=== PATIENT | male | born 1950 | race Caucasian/White ===

== ENCOUNTER 2017-01-05 08:00 | Outpatient (CLI) | payer MEDICARE, OTHER ==
[2017-01-05 13:33] LABS: CHOL/HDL RATIO 5.6 (<5.0); CHOLESTEROL 185 mg/dL; HDL CHOLESTEROL 33 mg/dL; LDL/HDL RATIO 3.3 (<3.6); TRIGLYCERIDES 215 mg/dL; VLDL CHOLESTEROL 43 mg/dL
== END 2017-01-05 08:01 | disposition home or self-care (01) ==
LOC: LAB.WCP 08:00
PROVIDERS: ATTEND Family Medicine
DX: E78.5 Hyperlipidemia, unspecified (principal)
CPT/HCPCS: 36415; 80061

== ENCOUNTER 2017-03-07 14:25 | Outpatient (CLI) | payer MEDICARE, OTHER | END 2017-03-07 14:26 | disposition home or self-care (01) | LOC: SC 14:25 | PROVIDERS: ATTEND Internal Medicine Pulmonary Disease | DX: G47.33 Obstructive sleep apnea (adult) (pediatric) (principal) | CPT/HCPCS: 99213; G0463; 99212 ==

== ENCOUNTER 2017-07-13 07:25 | Outpatient (CLI) | payer MEDICARE, OTHER ==
[2017-07-13 12:25] LABS: BASOPHILS % (AUTO) 0.6 %; EOSINOPHILS # (AUTO) 0.3 10^3/uL (0.0-0.7); EOSINOPHILS % (AUTO) 4.2 %; LYMPHOCYTES # (AUTO) 1.5 10^3/uL (1.5-3.5); LYMPHOCYTES % (AUTO) 21.4 %; MEAN CORPUSCULAR HEMOGLOBIN 28.1 pg (27.0-31.0); MEAN CORPUSCULAR VOLUME 82.5 fL (80.0-94.0); MEAN PLATELET VOLUME 8.9 fL (7.4-11.4); MONOCYTES # (AUTO) 0.7 10^3/uL (0.0-1.0); MONOCYTES % (AUTO) 10.3 %; NEUTROPHILS # (AUTO) 4.6 10^3/uL (1.5-6.6); NEUTROPHILS % (AUTO) 63.5 %; PLT - PLATELET COUNT 198 10^3/uL (130-450); RED BLOOD COUNT 6.06 10^6/uL (4.70-6.10); RED CELL DISTRIBUTION WIDTH 14.7 % (12.0-15.0); WHITE BLOOD COUNT 7.2 x10^3/uL (4.8-10.8)
[2017-07-13 12:54] LABS: PSA SCREEN (Z12.5) 1.98 ng/mL (0.000-2.000)
[2017-07-13 13:04] LABS: ALBUMIN 4.2 g/dL (3.2-5.5); ALBUMIN/GLOBULIN RATIO 1.5 (1.0-2.2); ALKALINE PHOSPHATASE 55 IU/L (42-121); ALT ALANINE AMINOTRANSFERASE 35 IU/L (10-60); AST ASPARTATE AMINOTRANSFERASE 27 IU/L (10-42); BILIRUBIN,TOTAL 0.8 mg/dL (0.2-1.0); BUN - BLOOD UREA NITROGEN 19 mg/dL (6-20); CALCIUM 9.4 mg/dL (8.5-10.3); CARBON DIOXIDE - CO2 25 mmol/L (21-32); CHLORIDE 108 mmol/L (101-111); CHOL/HDL RATIO 6.2 (<5.0); CHOLESTEROL 180 mg/dL; CREATININE 1.1 mg/dL (0.6-1.2); GFR - MDRD 67 (>89); GLUCOSE 107 mg/dL (70-100); HDL CHOLESTEROL 29 mg/dL; LDL CHOLESTEROL,CALCULATED 105 mg/dL; LDL/HDL RATIO 3.6 (<3.6); SODIUM 142 mmol/L (135-145); VLDL CHOLESTEROL 46 mg/dL
== END 2017-07-13 07:26 | disposition home or self-care (01) ==
LOC: LAB.WCP 07:25
PROVIDERS: ATTEND Family Medicine
DX: I10 Essential (primary) hypertension (principal); Z12.5 Encounter for screening for malignant neoplasm of prostate; R73.01 Impaired fasting glucose; E78.5 Hyperlipidemia, unspecified; E29.8 Other testicular dysfunction
CPT/HCPCS: 36415; 80053; 80061; 84403; 85025; G0103; 83721; 84153

== ENCOUNTER 2017-11-14 09:11 | Outpatient (CLI) | payer MEDICARE, OTHER | END 2017-11-14 09:12 | disposition home or self-care (01) | LOC: SC 09:11 | PROVIDERS: ATTEND Internal Medicine Pulmonary Disease | DX: G47.33 Obstructive sleep apnea (adult) (pediatric) (principal) | CPT/HCPCS: 99213; G0463; 99212 ==

== ENCOUNTER 2018-01-02 09:08 | Outpatient (CLI) | payer MEDICARE, OTHER | END 2018-01-02 09:09 | disposition home or self-care (01) | LOC: SC 09:08 | PROVIDERS: ATTEND Internal Medicine Pulmonary Disease | DX: G47.33 Obstructive sleep apnea (adult) (pediatric) (principal) | CPT/HCPCS: 99213; G0463; 99212 ==

== ENCOUNTER 2018-02-07 09:09 | Outpatient (CLI) | payer MEDICARE, OTHER | END 2018-02-07 09:10 | disposition home or self-care (01) | LOC: SC 09:09 | PROVIDERS: ATTEND Internal Medicine Pulmonary Disease | DX: G47.33 Obstructive sleep apnea (adult) (pediatric) (principal) | CPT/HCPCS: 99213; G0463; 99212 ==

== ENCOUNTER 2018-08-25 08:00 | Outpatient (CLI) | payer MEDICARE, OTHER ==
[2018-08-25 12:33] LABS: BASOPHILS # (AUTO) 0.1 10^3/uL (0.0-0.1); BASOPHILS % (AUTO) 1.2 %; EOSINOPHILS # (AUTO) 0.3 10^3/uL (0.0-0.7); EOSINOPHILS % (AUTO) 4.2 %; HGB - HEMOGLOBIN 16.5 g/dL (14.0-18.0); LYMPHOCYTES # (AUTO) 1.4 10^3/uL (1.5-3.5); LYMPHOCYTES % (AUTO) 19.7 %; MEAN CORPUSCULAR HEMOGLOBIN 27.5 pg (27.0-31.0); MEAN CORPUSCULAR HGB CONC 33.4 g/dL (32.0-36.0); MEAN CORPUSCULAR VOLUME 82.4 fL (80.0-94.0); MONOCYTES # (AUTO) 0.8 10^3/uL (0.0-1.0); MONOCYTES % (AUTO) 11.4 %; NEUTROPHILS # (AUTO) 4.6 10^3/uL (1.5-6.6); NEUTROPHILS % (AUTO) 63.5 %; PLT - PLATELET COUNT 186 10^3/uL (130-450); RED CELL DISTRIBUTION WIDTH 14.6 % (12.0-15.0); WHITE BLOOD COUNT 7.2 x10^3/uL (4.8-10.8)
[2018-08-25 12:35] LABS: ALBUMIN 3.9 g/dL (3.2-5.5); ALBUMIN/GLOBULIN RATIO 1.3 (1.0-2.2); ALKALINE PHOSPHATASE 60 IU/L (42-121); ALT ALANINE AMINOTRANSFERASE 35 IU/L (10-60); AST ASPARTATE AMINOTRANSFERASE 26 IU/L (10-42); BILIRUBIN,TOTAL 0.9 mg/dL (0.2-1.0); BUN - BLOOD UREA NITROGEN 19 mg/dL (6-20); CALCIUM 9.3 mg/dL (8.5-10.3); CARBON DIOXIDE - CO2 29 mmol/L (21-32); CHLORIDE 104 mmol/L (101-111); CHOL/HDL RATIO 5.9 (<5.0); CHOLESTEROL 160 mg/dL; GFR - MDRD 74 (>89); GLUCOSE 102 mg/dL (70-100); HDL CHOLESTEROL 27 mg/dL; LDL CHOLESTEROL,CALCULATED 101 mg/dL; LDL/HDL RATIO 3.7 (<3.6); SODIUM 142 mmol/L (135-145); TOTAL PROTEIN 6.8 g/dL (6.7-8.2); VLDL CHOLESTEROL 32 mg/dL
[2018-08-25 12:36] LABS: HEMOGLOBIN A1C 0.77 g/dL; HEMOGLOBIN A1C % 6.1 % (4.6-6.2)
[2018-08-25 12:39] LABS: PSA SCREEN (Z12.5) 2.11 ng/mL (0.000-2.000)
== END 2018-08-25 23:59 | disposition home or self-care (01) ==
LOC: LAB.WCP 08:00
PROVIDERS: ATTEND Family Medicine
DX: I10 Essential (primary) hypertension (principal); R73.01 Impaired fasting glucose; Z12.5 Encounter for screening for malignant neoplasm of prostate; E78.5 Hyperlipidemia, unspecified; E29.8 Other testicular dysfunction; D50.8 Other iron deficiency anemias
CPT/HCPCS: 36415; 80053; 80061; 83036; 84403; 85025; G0103; 83721; 84153

== ENCOUNTER 2018-11-27 | Outpatient (CLI) | payer MEDICARE, OTHER | END 2018-11-27 23:59 | disposition home or self-care (01) ==

== ENCOUNTER 2019-05-14 08:57 | Outpatient (CLI) | payer MEDICARE, OTHER ==
--- NOTE | 2019-05-14 09:38 | SLEEP CARE CONSULTATION ---
Information from patient questionnaire entered by Sadie Will. I have reviewed and concur with the information entered by Sadie Will. This document represents the service I personally performed and the decisions made by me, Jennifer Nails MD, [facility]. History of Present Illness Previous diagnosis: Severe, Obstructive Sleep Apnea-Hypopnea Syndrome, Central Sleep Apnea-Hypopnea Syndrome AHI: 52.0 Reason for follow up: annual (last seen 2018) Equipment type: CPAP Equipment obtained from: [employer] Mask style: Nasal HPI additional information: HPI: Mr. Mary was diagnosed to have severe obstructive sleep apnea-hypopnea syndrome and returns today for annual follow up of CPAP therapy. The patient purchased the device from [employer] and was fitted with a nasal mask. He continues to use the device nightly and all through the night. The compliance report shows that he uses the device 180 nights out of the past 180 nights, averaging 6.6 hours a night. He complains of no particular problem with the device such as soreness on the face, dry nose, epistaxis, nasal congestion or headache. He thinks that the pressure of 13 - 16 cmH2O is comfortable. On the CPAP therapy he notices improvement in his sleep quality, and that he wakes up feeling fresher in the morning and more awake/alert during the day. [place] Sleepiness Scale score is 7. His notices no snore at all. The average residual AHI is 6.9; and large leak, 1 L/min. CPAP Compliance Data - Data Reviewed with Patient Average duration of nightly device use: 6.55 Compliance rate %: 100 (180 days) Current pressure setting (cmH2O): 13-16 Humidity settin Average residual AHI: 6.9 Subjective Initial [place] Sleepiness Scale score: 11 Current [place] Sleepiness Scale score: 7 Allergies and Home Medications Drug allergies reviewed: Yes Home medication list reviewed: Yes Review of Systems Review of systems same as previous: Yes Physical Exam Weight: 275 lb Impression and Plan IMPRESSION: 1. Obstructive Sleep Apnea-Hypopnea Syndrome, severe with the patient continuing to do well on nasal CPAP therapy. He has excellent compliance and significant clinical benefits. The current pressure appears comfortable but slightly ineffective. Overall, he is very satisfied with treatment and plans to continue with it long-term. Because the residual AHI is occasionally high, I will raise the pressure range a little. PLAN: 1. Set autoCPAP at 14 - 17 cm H2O. 2. Try to lose weight 3. Try ResMed N30i mask next time he is eligible for a new mask. 4. Return in one year for follow up or earlier if there is any problem with the treatment. I spent 100% of this visit face to face with the patient with greater than 50% of this was spent time counseling the patient and coordination of care.
== END 2019-05-14 08:58 | disposition home or self-care (01) ==
LOC: SC 08:57
PROVIDERS: ATTEND Internal Medicine Pulmonary Disease
DX: G47.33 Obstructive sleep apnea (adult) (pediatric) (principal)
CPT/HCPCS: 99213; G0463; 99212

== ENCOUNTER 2019-07-23 08:12 | Outpatient (CLI) | payer MEDICARE, OTHER ==
[2019-07-23 12:57] LABS: ALBUMIN 4.2 g/dL (3.2-5.5); ALBUMIN/GLOBULIN RATIO 1.2 (1.0-2.2); ALKALINE PHOSPHATASE 68 IU/L (42-121); ALT ALANINE AMINOTRANSFERASE 27 IU/L (10-60); AST ASPARTATE AMINOTRANSFERASE 20 IU/L (10-42); BILIRUBIN,TOTAL 0.8 mg/dL (0.2-1.0); BUN - BLOOD UREA NITROGEN 26 mg/dL (6-20); CALCIUM 9.6 mg/dL (8.5-10.3); CARBON DIOXIDE - CO2 27 mmol/L (21-32); CHLORIDE 105 mmol/L (101-111); CHOL/HDL RATIO 6.3 (<5.0); CHOLESTEROL 215 mg/dL; CREATININE 1.2 mg/dL (0.6-1.2); GLUCOSE 102 mg/dL (70-100); HDL CHOLESTEROL 34 mg/dL; LDL CHOLESTEROL,CALCULATED 127 mg/dL; LDL/HDL RATIO 3.7 (<3.6); SODIUM 139 mmol/L (135-145); TOTAL PROTEIN 7.6 g/dL (6.7-8.2); VLDL CHOLESTEROL 54 mg/dL
== END 2019-07-23 23:59 | disposition home or self-care (01) ==
LOC: LAB.WCP 08:12
PROVIDERS: ATTEND Internal Medicine Cardiovascular Disease
DX: I48.91 Unspecified atrial fibrillation (principal); I25.810 Atherosclerosis of coronary artery bypass graft(s) without angina pectoris
CPT/HCPCS: 36415; 80053; 80061; 83721

== ENCOUNTER 2019-12-19 08:23 | Outpatient (CLI) | payer MEDICARE, OTHER ==
[2019-12-19 11:50] LABS: CALCIUM 9.5 mg/dL (8.5-10.3); CREATININE 1.3 mg/dL (0.6-1.2); URIC ACID 7.4 mg/dL (2.6-7.2)
== END 2019-12-19 23:59 | disposition home or self-care (01) ==
LOC: LAB.WCP 08:23
PROVIDERS: ATTEND Family Medicine
DX: M10.9 Gout, unspecified (principal)
CPT/HCPCS: 36415; 80048; 84550

== ENCOUNTER 2020-05-12 09:48 | Outpatient (CLI) | payer MEDICARE, OTHER ==
--- NOTE | 2020-05-12 12:45 | SLEEP CARE CONSULTATION ---
Information from patient questionnaire entered by Sadie Will. I have reviewed and concur with the information entered by Sadie Wlil. This document represents the service I personally performed and the decisions made by me, Jennifer Nails MD, [facility]. History of Present Illness Service Date and Time: 05/12/2020 0948 Previous diagnosis: Severe, Obstructive Sleep Apnea-Hypopnea Syndrome, Central Sleep Apnea-Hypopnea Syndrome AHI: 52.0 (in 2012) Reason for follow up: annual (last seen 04/2019) Equipment type: CPAP Equipment obtained from: [employer] Mask style: Nasal Prior sleep studies: Yes [facility] Type of Sleep Study: Polysomnography HPI additional information: HPI: Mr. Mary was diagnosed to have severe obstructive sleep apnea-hypopnea syndrome and returns today for annual follow up of CPAP therapy. The patient gets his supplies from [employer]. He wears a nasal mask. He continues to use the device nightly and all through the night. The compliance report shows that he uses the device 180 nights out of the past 180 nights, averaging 6.6 hours a night. He complains of no particular problem with the device such as soreness on the face, dry nose, epistaxis, nasal congestion or headache. He thinks that the pressure of 14 - 17 cmH2O is comfortable. On the CPAP therapy he notices improvement in his sleep quality, and that he wakes up feeling fresher in the morning and more awake/alert during the day. [place] Sleepiness Scale score is 7. His notices no snore at all. The average residual AHI is 6.9; and large leak, 1 L/min. CPAP Compliance Data - Data Reviewed with Patient Average duration of nightly device use: 6 hr 26 min Compliance rate %: 98 (180 days) Current pressure setting (cmH2O): 14-17 Humidity settin Average residual AHI: 13.0 Subjective Initial [place] Sleepiness Scale score: 11 (in 2012) Current [place] Sleepiness Scale score: 5 Allergies and Home Medications Drug allergies reviewed: Yes Home medication list reviewed: Yes Review of Systems Review of systems same as previous: Yes Physical Exam Vital signs obtained and entered by: To minimize the risk of COVID-19 exposure, detailed exam was not performed. Height: 5 ft 11 in Weight: 275 lb Body Mass Index: 38.3 BMI Classification: Obese Impression and Plan IMPRESSION: 1. Obstructive Sleep Apnea-Hypopnea Syndrome, severe with the patient continuing to do well on nasal CPAP therapy. He has excellent compliance and significant clinical benefits. The current pressure appears comfortable but slightly ineffective. Overall, he is very satisfied with treatment and plans to continue with it long-term. Because the residual AHI is high but trending down, I will leave the pressure setting where it is and recheck the AHI in two months. PLAN: 1. Leave autoCPAP at 14 - 17 cm H2O. 2. Try to lose weight 3. Return in one year for follow up in two months to recheck the residual AHI. Visit Type: In Office Time Spent with Patient (minutes): 20 Provider Statement: I spent 100% of the Face to Face Visit with the patient with greater than 50% spent counseling the patient and coordination of care.
== END 2020-05-12 09:49 | disposition home or self-care (01) ==
LOC: SC 09:48
PROVIDERS: ATTEND Internal Medicine Pulmonary Disease
DX: G47.33 Obstructive sleep apnea (adult) (pediatric) (principal); E66.9 Obesity, unspecified; Z68.38 Body mass index [BMI] 38.0-38.9, adult
CPT/HCPCS: 99213; G0463; 99212

== ENCOUNTER 2020-06-23 08:00 | Outpatient (CLI) | payer MEDICARE, OTHER ==
[2020-06-23 12:28] LABS: BASOPHILS # (AUTO) 0.1 10^3/uL (0.0-0.1); BASOPHILS % (AUTO) 1.1 %; EOSINOPHILS # (AUTO) 0.4 10^3/uL (0.0-0.7); EOSINOPHILS % (AUTO) 5.3 %; HCT - HEMATOCRIT 53.7 % (42.0-52.0); HGB - HEMOGLOBIN 17.6 g/dL (14.0-18.0); LYMPHOCYTES # (AUTO) 1.3 10^3/uL (1.5-3.5); LYMPHOCYTES % (AUTO) 20.3 %; MEAN CORPUSCULAR HEMOGLOBIN 28.2 pg (27.0-31.0); MEAN CORPUSCULAR HGB CONC 32.8 g/dL (32.0-36.0); MEAN CORPUSCULAR VOLUME 86.1 fL (80.0-94.0); MEAN PLATELET VOLUME 10.3 fL (7.4-11.4); MONOCYTES # (AUTO) 0.7 10^3/uL (0.0-1.0); MONOCYTES % (AUTO) 10.3 %; NEUTROPHILS # (AUTO) 4.1 10^3/uL (1.5-6.6); NEUTROPHILS % (AUTO) 62.2 %; PLT - PLATELET COUNT 210 10^3/uL (130-450); RED BLOOD COUNT 6.24 10^6/uL (4.70-6.10); RED CELL DISTRIBUTION WIDTH 14.2 % (12.0-15.0); WHITE BLOOD COUNT 6.6 x10^3/uL (4.8-10.8)
[2020-06-23 12:46] LABS: % IRON SATURATION 19 % (20-50); ALBUMIN 4.1 g/dL (3.2-5.5); ALKALINE PHOSPHATASE 57 IU/L (42-121); ALT ALANINE AMINOTRANSFERASE 22 IU/L (10-60); AST ASPARTATE AMINOTRANSFERASE 18 IU/L (10-42); BILIRUBIN,TOTAL 0.7 mg/dL (0.2-1.0); BUN - BLOOD UREA NITROGEN 22 mg/dL (6-20); CARBON DIOXIDE - CO2 27 mmol/L (21-32); CHLORIDE 104 mmol/L (101-111); CREATININE 1.2 mg/dL (0.6-1.2); GFR - MDRD 60 (>89); GLUCOSE 102 mg/dL (70-100); IRON 69 ug/dL (45-182); POTASSIUM 3.9 mmol/L (3.5-5.0); SODIUM 144 mmol/L (135-145); TOTAL IRON BINDING CAPACITY 361 ug/dL (250-450); TOTAL PROTEIN 7.1 g/dL (6.7-8.2); TRANSFERRIN 258 mg/dL (180-329)
[2020-06-23 12:47] LABS: ALBUMIN/GLOBULIN RATIO 1.4 (1.0-2.2); CHOL/HDL RATIO 2.3 (<5.0); CHOLESTEROL 82 mg/dL; HDL CHOLESTEROL 36 mg/dL; LDL CHOLESTEROL,CALCULATED 25 mg/dL; LDL/HDL RATIO 0.7 (<3.6); TRIGLYCERIDES 105 mg/dL; VLDL CHOLESTEROL 21 mg/dL
[2020-06-23 12:54] LABS: FERRITIN 121.8 ng/mL (23.9-336.2)
[2020-06-23 13:17] LABS: ESTIMATED AVERAGE GLUCOSE 123 mg/dL (70-100); HEMOGLOBIN A1c% 5.9 % (4.27-6.07)
== END 2020-06-23 23:59 | disposition home or self-care (01) ==
LOC: LAB.WCP 08:00
PROVIDERS: ATTEND Family Medicine
DX: I10 Essential (primary) hypertension (principal); Z12.5 Encounter for screening for malignant neoplasm of prostate; D50.8 Other iron deficiency anemias; R73.01 Impaired fasting glucose
CPT/HCPCS: 36415; 80053; 80061; 82607; 82728; 83036; 83540; 84466; 85025; G0103; 83721; 84153

== ENCOUNTER 2020-07-14 09:01 | Outpatient (CLI) | payer MEDICARE, OTHER ==
--- NOTE | 2020-07-14 09:44 | SLEEP CARE CONSULTATION ---
Information from patient questionnaire entered by Sadie Will. I have reviewed and concur with the information entered by Sadie Will. This document represents the service I personally performed and the decisions made by me, Jennifer Nails MD, [facility]. History of Present Illness Service Date and Time: 07/14/2020 0901 Previous diagnosis: Severe, Obstructive Sleep Apnea-Hypopnea Syndrome, Central Sleep Apnea-Hypopnea Syndrome AHI: 52.0 (in 2012) Reason for follow up: other (2 month) Equipment type: CPAP [facility] Mask style: Nasal Prior sleep studies: Yes Year and Where: 2013 - [facility] Type of Sleep Study: Polysomnography HPI additional information: HPI: Mr. Mary returned today for follow up of nasal CPAP therapy. He was diagnosed to have severe obstructive sleep apnea-hypopnea syndrome. The patient went to [facility] for the equipment. He wears the ResMed P10 nasal pillows. He reports using the device nightly and all through the night. The compliance report shows usage in 60 nights out of the past 60 nights, averaging 6.4 hours a night. He complained of no particular problem with the device such as soreness on the face, dry nose, epistaxis, nasal congestion or headache. He thinks that the pressure of 14 - 17 cmH2O is comfortable. On the CPAP therapy he notices improvement in his sleep quality, and that he wakes up feeling fresher in the morning and more awake/alert during the day. The [place] Sleepiness Scale score 8. His notices no snore at all. The average residual AHI is 5.2 (was 9.9 two months ago); and air leak, 2.4 L/min. The 90th percentile pressure is 14.6 cmH2O. CPAP Compliance Data - Data Reviewed with Patient Average duration of nightly device use: 6 hr 26 min Compliance rate %: 100 (60 days) Current pressure setting (cmH2O): 14-17 Humidity settin Average residual AHI: 5.2 Subjective Current pressure setting perceived as: comfortable Initial [place] Sleepiness Scale score: 11 (in 2012) Current [place] Sleepiness Scale score: 8 Allergies and Home Medications Drug allergies reviewed: Yes Home medication list reviewed: Yes Review of Systems Review of systems same as previous: Yes Physical Exam Height: 5 ft 11 in Weight: 275 lb Body Mass Index: 38.3 BMI Classification: Obese Impression and Plan IMPRESSION: 1. Obstructive Sleep Apnea-Hypopnea Syndrome, severe, with the patient continuing to do well on nasal CPAP therapy. He has excellent compliance and significant clinical improvement. The current pressure appears effective and comfortable. Overall, he is very satisfied with treatment and plans to continue with it long-term. No adjustment is necessary today. PLAN: 1. Continue with autoCPAP set between 14 and 17 cmH2O. 2. Try to lose weight 3. Try ResMed N30i mask and P30i nasal pillows. 4. Return in one year for follow up or earlier if there is any problem. Follow up with Sleep Care in: 1 year Follow up recommended for: Weight management Visit Type: In Office Time Spent with Patient (minutes): 15 Provider Statement: I spent 100% of the Face to Face Visit with the patient with greater than 50% spent counseling the patient and coordination of care.
== END 2020-07-14 09:02 | disposition home or self-care (01) ==
LOC: SC 09:01
PROVIDERS: ATTEND Internal Medicine Pulmonary Disease
DX: G47.33 Obstructive sleep apnea (adult) (pediatric) (principal); E66.9 Obesity, unspecified; Z68.38 Body mass index [BMI] 38.0-38.9, adult
CPT/HCPCS: 99212; G0463

== ENCOUNTER 2020-11-28 08:08 | Outpatient (CLI) | payer MEDICARE, OTHER ==
--- NOTE | 2020-11-28 11:59 | XRAY Report ---
PROCEDURE: Abdomen 1 View X-Ray INDICATIONS: STONES TECHNIQUE: 1 view of the abdomen were acquired. COMPARISON: None. FINDINGS: Surgical changes and devices: None. Bowel: No pneumoperitoneum. The bowel gas pattern is normal. Soft tissues: No masses; visualized solid organ contours appear normal in size. No suspicious abdom inal calcifications. Bones: No suspicious bony abnormalities. IMPRESSION: A urinary tract stone is not found. Body habitus is large, overlying stool content could obscure visualization of a relatively radiolucent calculus within the urinary tract. CT KUB imaging may be warranted. Incidental note is made of several low pelvic phleboliths on the left. Reviewed by: Chris Cochran MD on 11/28/2020 11:57 AM PDT Approved by: Chris Cochran MD on 11/28/2020 11:57 AM PDT Station ID: [id number]
== END 2020-11-28 08:09 | disposition home or self-care (01) ==
LOC: DI 08:08
PROVIDERS: ATTEND Specialist
DX: N40.1 Benign prostatic hyperplasia with lower urinary tract symptoms (principal); N13.8 Other obstructive and reflux uropathy; N20.0 Calculus of kidney; M54.5 Low back pain; Z87.442 Personal history of urinary calculi

== ENCOUNTER 2020-12-02 08:00 | Outpatient (CLI) | payer MEDICARE, OTHER ==
[2020-12-02 12:11] LABS: BASOPHILS # (AUTO) 0.1 10^3/uL (0.0-0.1); BASOPHILS % (AUTO) 0.9 %; EOSINOPHILS # (AUTO) 0.3 10^3/uL (0.0-0.7); EOSINOPHILS % (AUTO) 3.6 %; HGB - HEMOGLOBIN 17.7 g/dL (14.0-18.0); LYMPHOCYTES # (AUTO) 1.2 10^3/uL (1.5-3.5); LYMPHOCYTES % (AUTO) 16.2 %; MEAN CORPUSCULAR HEMOGLOBIN 27.9 pg (27.0-31.0); MEAN CORPUSCULAR HGB CONC 32.8 g/dL (32.0-36.0); MEAN CORPUSCULAR VOLUME 85.2 fL (80.0-94.0); MEAN PLATELET VOLUME 10.7 fL (7.4-11.4); MONOCYTES # (AUTO) 0.7 10^3/uL (0.0-1.0); MONOCYTES % (AUTO) 9.1 %; NEUTROPHILS # (AUTO) 5.3 10^3/uL (1.5-6.6); NEUTROPHILS % (AUTO) 69.3 %; PLT - PLATELET COUNT 198 10^3/uL (130-450); RED BLOOD COUNT 6.34 10^6/uL (4.70-6.10); WHITE BLOOD COUNT 7.6 x10^3/uL (4.8-10.8)
[2020-12-02 12:57] LABS: ALBUMIN 4.2 g/dL (3.2-5.5); ALBUMIN/GLOBULIN RATIO 1.5 (1.0-2.2); ALKALINE PHOSPHATASE 60 IU/L (42-121); ALT ALANINE AMINOTRANSFERASE 29 IU/L (10-60); AST ASPARTATE AMINOTRANSFERASE 22 IU/L (10-42); BILIRUBIN,TOTAL 1.4 mg/dL (0.2-1.0); BUN - BLOOD UREA NITROGEN 23 mg/dL (6-20); CALCIUM 9.7 mg/dL (8.5-10.3); CARBON DIOXIDE - CO2 25 mmol/L (21-32); CHLORIDE 107 mmol/L (101-111); CHOL/HDL RATIO 2.4 (<5.0); CHOLESTEROL 76 mg/dL; CREATININE 1.1 mg/dL (0.6-1.2); GFR - MDRD 66 (>89); GLUCOSE 110 mg/dL (70-100); HDL CHOLESTEROL 32 mg/dL; LDL CHOLESTEROL,CALCULATED 23 mg/dL; LDL/HDL RATIO 0.7 (<3.6); POTASSIUM 4.3 mmol/L (3.5-5.0); SODIUM 141 mmol/L (135-145); TRIGLYCERIDES 106 mg/dL; URIC ACID 6.6 mg/dL (2.6-7.2); VLDL CHOLESTEROL 21 mg/dL
[2020-12-02 13:03] LABS: ESTIMATED AVERAGE GLUCOSE 126 mg/dL (70-100)
== END 2020-12-02 23:59 | disposition home or self-care (01) ==
LOC: LAB.WCP 08:00
PROVIDERS: ATTEND Family Medicine
DX: I10 Essential (primary) hypertension (principal); E78.5 Hyperlipidemia, unspecified; R73.01 Impaired fasting glucose; M10.9 Gout, unspecified
CPT/HCPCS: 36415; 80053; 80061; 83036; 83721; 84550; 85025

== ENCOUNTER 2020-12-09 07:35 | Outpatient (CLI) | payer MEDICARE, OTHER ==
[2020-12-15 17:31] LABS: ERYTHROPOIETIN 12.7 mIU/mL (2.6-18.5)
== END 2020-12-09 23:59 | disposition home or self-care (01) ==
LOC: LAB.WCP 07:35
PROVIDERS: ATTEND Family Medicine
DX: D75.1 Secondary polycythemia (principal)
CPT/HCPCS: 81270; 82668

== ENCOUNTER 2021-06-13 09:04 | Outpatient (CLI) | payer MEDICARE, OTHER ==
[2021-06-13 14:00] LABS: BASOPHILS # (AUTO) 0.1 10^3/uL (0.0-0.1); BASOPHILS % (AUTO) 0.8 %; EOSINOPHILS # (AUTO) 0.3 10^3/uL (0.0-0.7); EOSINOPHILS % (AUTO) 3.7 %; HCT - HEMATOCRIT 53.9 % (42.0-52.0); HGB - HEMOGLOBIN 17.7 g/dL (14.0-18.0); LYMPHOCYTES # (AUTO) 1.6 10^3/uL (1.5-3.5); LYMPHOCYTES % (AUTO) 17.8 %; MEAN CORPUSCULAR HEMOGLOBIN 28.3 pg (27.0-31.0); MEAN CORPUSCULAR HGB CONC 32.8 g/dL (32.0-36.0); MEAN CORPUSCULAR VOLUME 86.1 fL (80.0-94.0); MEAN PLATELET VOLUME 10.8 fL (7.4-11.4); MONOCYTES # (AUTO) 0.9 10^3/uL (0.0-1.0); MONOCYTES % (AUTO) 10.4 %; NEUTROPHILS # (AUTO) 5.9 10^3/uL (1.5-6.6); NEUTROPHILS % (AUTO) 66.5 %; PLT - PLATELET COUNT 202 10^3/uL (130-450); RED BLOOD COUNT 6.26 10^6/uL (4.70-6.10); RED CELL DISTRIBUTION WIDTH 14.1 % (12.0-15.0); WHITE BLOOD COUNT 8.8 x10^3/uL (4.8-10.8)
[2021-06-13 14:22] LABS: ESTIMATED AVERAGE GLUCOSE 120 mg/dL (70-100); HEMOGLOBIN A1c% 5.8 % (4.27-6.07)
[2021-06-13 15:07] LABS: ALBUMIN 3.9 g/dL (3.2-5.5); ALBUMIN/GLOBULIN RATIO 1.4 (1.0-2.2); ALKALINE PHOSPHATASE 55 IU/L (42-121); ALT ALANINE AMINOTRANSFERASE 24 IU/L (10-60); AST ASPARTATE AMINOTRANSFERASE 19 IU/L (10-42); BILIRUBIN,TOTAL 1.1 mg/dL (0.2-1.0); BUN - BLOOD UREA NITROGEN 20 mg/dL (6-20); CALCIUM 9.8 mg/dL (8.5-10.3); CARBON DIOXIDE - CO2 26 mmol/L (21-32); CHLORIDE 107 mmol/L (101-111); CHOL/HDL RATIO 2.2 (<5.0); CHOLESTEROL 78 mg/dL; CREATININE 1.2 mg/dL (0.6-1.2); GFR - MDRD 60 (>89); GLUCOSE 94 mg/dL (70-100); HDL CHOLESTEROL 36 mg/dL; LDL CHOLESTEROL,CALCULATED 22 mg/dL; LDL/HDL RATIO 0.6 (<3.6); POTASSIUM 4.4 mmol/L (3.5-5.0); SODIUM 142 mmol/L (135-145); TOTAL PROTEIN 6.7 g/dL (6.7-8.2); TRIGLYCERIDES 101 mg/dL; VLDL CHOLESTEROL 20 mg/dL
== END 2021-06-13 09:05 | disposition home or self-care (01) ==
LOC: LAB.N 09:04
PROVIDERS: ATTEND Family Medicine
DX: E16.1 Other hypoglycemia (principal); I10 Essential (primary) hypertension; C18.0 Malignant neoplasm of cecum; D75.1 Secondary polycythemia
CPT/HCPCS: 36415; 80053; 80061; 82378; 83036; 83721; 85025

== ENCOUNTER 2021-06-15 09:27 | Outpatient (CLI) | payer MEDICARE, OTHER ==
--- NOTE | 2021-06-15 10:06 | SLEEP CARE CONSULTATION ---
Information from patient questionnaire entered by Alex Davis MA. I have reviewed and concur with the information entered by Alex Davis MA. This document represents the service I personally performed and the decisions made by me, Jennifer Nails MD, [facility]. History of Present Illness Service Date and Time: 06/15/2021 0927 Previous diagnosis: Severe, Obstructive Sleep Apnea-Hypopnea Syndrome, Central Sleep Apnea-Hypopnea Syndrome AHI: 52.0 (in 2012) Reason for follow up: other (11 MONTH F/U) Equipment type: CPAP Equipment obtained from: [employer] Mask style: Nasal Prior sleep studies: Yes Year and Where: 2012 - [facility] Type of Sleep Study: Polysomnography HPI additional information: Mr. Mary was diagnosed to have severe obstructive sleep apnea-hypopnea syndrome and returns today for annual follow up of CPAP therapy. The patient gets his supplies from [employer]. He wears a nasal mask. He continues to use the device nightly and all through the night. The compliance report shows that he uses the device 365 nights out of the past 365 nights, averaging 6.7 hours a night. He complains of no particular problem with the device such as soreness on the face, dry nose, epistaxis, nasal congestion or headache. He thinks that the pressure of 14 - 17 cmH2O is comfortable. On the CPAP therapy he notices improvement in his sleep quality, and that he wakes up feeling fresher in the morning and more awake/alert during the day. [place] Sleepiness Scale score is 10. His notices no snore at all. The average residual AHI is 10.3 (was 6.9); and large leak, 2.2/min. He tells me that he now has erythrocytosis and his kiosk sales representative wants to make sure that the CPAP is optimally set at that he is not hypoxic at night. Sleep Study - Results Type of Sleep Study: Polysomnography Prior sleep studies: Yes Year and Where: 2012 - [facility] CPAP Compliance Data - Data Reviewed with Patient Average duration of nightly device use: 6 HOURS 32 MINUTES Compliance rate %: 99 Current pressure setting (cmH2O): 14-17 Average residual AHI: 9.7 Central apnea: 3.5 Obstructive apnea: .1 Average large leak: 52.8 Subjective Initial [place] Sleepiness Scale score: 11 (in 2012) Current [place] Sleepiness Scale score: 10 (2021) Allergies and Home Medications Known drug allergies: Yes (STTATINS) Drug allergies reviewed: Yes Home medication list reviewed: Yes Allergy and home medication list: Allergies No Known Drug Allergies Allergy (Verified 01/04/15 10:47) Review of Systems Review of systems same as previous: Yes (erythrocytosis) Physical Exam Vital signs obtained and entered by: Treasure DAVIS CMA AAFRACISCO Blood Pressure: 132/96 (LEFT, PULSE 44, RESP 14, ) Heart Rate: 40 O2 Saturation: 98 (N95 MASK) Height: 5 ft 11 in Weight: 263 lb (CLOTHED) Body Mass Index: 36.6 BMI Classification: Obese Impression and Plan IMPRESSION: 1. Obstructive Sleep Apnea-Hypopnea Syndrome, severe (AHI was 52.0), with the patient continuing to do well on nasal CPAP therapy. He has excellent compliance and significant clinical benefits. The current pressure appears comfortable but slightly ineffective. Overall, he is very satisfied with treatment and plans to continue with it long-term. Because the residual AHI is occasionally high, I will raise the pressure range a little. With the onset of erythrocytosis, I will order a manual CPAP/BiPAP titration study to help adjust the pressure and to see if oxygen therapy is indicated. He has never smoked cigarettes. PLAN: 1. Leave autoCPAP at 14 - 17 cm H2O. 2. Order a manual CPAP/BiPAP titration study. The pressure will start at 14 cmH2O. 3. Return for follow up after the sleep study. Follow up with Sleep Care in: 1-2 months Visit Type: In Office Time Spent with Patient (minutes): 15 Provider Statement: I spent 100% of the Face to Face Visit with the patient with greater than 50% spent counseling the patient and coordination of care.
[2021-06-15 10:07] VITALS: BP 132/96
== END 2021-06-15 09:28 | disposition home or self-care (01) ==
LOC: SC 09:27
PROVIDERS: ATTEND Internal Medicine Pulmonary Disease
DX: G47.31 Primary central sleep apnea (principal); G47.33 Obstructive sleep apnea (adult) (pediatric); E66.9 Obesity, unspecified; Z68.36 Body mass index [BMI] 36.0-36.9, adult
CPT/HCPCS: 99212; G0463

== ENCOUNTER 2021-07-11 09:04 | Outpatient (CLI) | payer MEDICARE, OTHER | END 2021-07-11 09:05 | disposition home or self-care (01) | LOC: LAB.N 09:04 | PROVIDERS: ATTEND Internal Medicine Pulmonary Disease | DX: Z01.812 Encounter for preprocedural laboratory examination (principal); Z20.822 Contact with and (suspected) exposure to COVID-19 ==

== ENCOUNTER 2021-07-13 20:29 | Outpatient (CLI) | payer MEDICARE, OTHER | END 2021-07-13 20:30 | disposition home or self-care (01) | LOC: SC 20:29 | PROVIDERS: ATTEND Internal Medicine Pulmonary Disease | DX: G47.33 Obstructive sleep apnea (adult) (pediatric) (principal); G47.61 Periodic limb movement disorder; I48.91 Unspecified atrial fibrillation | CPT/HCPCS: 95811 ==

== ENCOUNTER 2021-08-03 15:05 | Outpatient (CLI) | payer MEDICARE, OTHER ==
--- NOTE | 2021-08-03 22:43 | SLEEP CARE CONSULTATION ---
Information from patient questionnaire entered by Alex Lay MA. I have reviewed and concur with the information entered by Alex Lay MA. This document represents the service I personally performed and the decisions made by me, Jennifer Nails MD, [facility]. History of Present Illness Service Date and Time: 08/03/2021 1505 Initial [place] Sleepiness Scale score: 11 (in 2013) Additional HPI information: Mr. Mary was called to follow up on the sleep study (a manual CPAP titration study) he had on 07/13/2021. The polysomnography showed that the patient had reduced sleep efficiency due to sleep onset insomnia and a prolonged awakening in the middle of the night. The sleep architecture was relatively normal considering the first-night effect. CPAP was started at 14 and raised to 15 cmH2O. CPAP at 15 cmH2O was effective (residual AHI = 3.1) and no hypoxia (esther oxygen saturation of 91%). The was Jam-Marroquin respiration. There was severe periodic leg movement of sleep not associated with sleep fragmentation. Cardiac rhythm was atrial fibrillation with occasional premature ventricular contractions. No abnormal behavior (parasomnia) observed during the night. The patient was informed of these findings. I explained to him that the current pressure is adequate. Presently his autoCPAP is set at 14 - 17 cmH2O. He told me that he has been using the device every night and pretty much all nightlong. He continues to have significant improvement in his original symptoms. He denies having restless leg syndrome or being bothered by his legs. Sleep Study - Results Type of Sleep Study: Polysomnography (F/U TITRATION,) Prior sleep studies: Yes Year and Where: 2012 - [facility] Allergies and Home Medications Drug allergies reviewed: Yes Home medication list reviewed: Yes Allergy and home medication list: Allergies No Known Drug Allergies Allergy (Verified 01/04/15 10:47) Physical Exam Vital signs obtained and entered by: Treasure LAY CMA AAFRACISCO Height: 5 ft 11 in Impression and Plan IMPRESSION: 1. Obstructive Sleep Apnea-Hypopnea Syndrome, severe, adequately controlled with CPAP of 15 cmH2O. So far, he has been doing well on the treatment and continues to have good treatment compliance. Based on the titration study, I will leave his autoCPAP at 14 - 17 cmH2O. Hopefully with the adjustment he might have additional improvement. PLAN: 1. Leave his autoCPAP set at 14 - 17 cmH2O. 2. Attempt to lose weight. 3. Return for follow up in one year. Follow up with Sleep Care in: 1 year Visit Type: Telehealth Video ([phone] HOME) Video Type: Doximity Patient Location: Home Location of Provider: Office Patient agrees and consents to this telehealth visit type: Yes Patient agrees to have their insurance billed: Yes Time Spent with Patient (minutes): 15 Provider Statement: I spent 100% of the Telehealth Video Call with the patient with greater than 50% spent counseling the patient and coordination of care.
== END 2021-08-03 15:06 | disposition home or self-care (01) ==
LOC: SC 15:05
PROVIDERS: ATTEND Internal Medicine Pulmonary Disease
DX: G47.33 Obstructive sleep apnea (adult) (pediatric) (principal)
CPT/HCPCS: 99212; G0463

== ENCOUNTER 2021-11-16 07:27 | Outpatient (CLI) | payer MEDICARE, OTHER ==
--- NOTE | 2021-11-16 10:33 | XRAY Report ---
PROCEDURE: Knee 2 View BILAT INDICATIONS: OSTEOARTHRITIS, BILATERAL KNEES TECHNIQUE: 2 views of the bilateral knee(s) were acquired. COMPARISON: None. FINDINGS: Bones: No fractures or dislocations. No suspicious bony lesions. There is severe degenerative arthr itis of the left knee with tricompartment osteophytes, medial compartment joint space obliteration, a nd mild lateral subluxation of the tibia relative to the femur. On the left, findings are mild to mod erate. There are smaller tricompartment osteophytes. There is moderate medial compartment joint space loss. Soft tissues: Small left knee joint effusion. Minimal right knee joint effusion. No suspicious soft t issue calcifications. IMPRESSION: Bilateral degenerative arthritis of the knees, severe on the left and mild to moderate o n the right. Reviewed by: Marco A Merrill MD on 11/16/2021 10:31 AM PDT Approved by: Marco A Merrill MD on 11/16/2021 10:31 AM PDT Station ID: [id number]
== END 2021-11-16 07:28 | disposition home or self-care (01) ==
LOC: DI.N 07:27
PROVIDERS: ATTEND Internal Medicine
DX: M17.0 Bilateral primary osteoarthritis of knee (principal)

== ENCOUNTER 2022-02-15 07:10 | Outpatient (CLI) | payer MEDICARE, OTHER ==
[2022-02-15 12:53] LABS: CALCIUM 10.1 mg/dL (8.5-10.3); CREATININE 1.2 mg/dL (0.6-1.2); POTASSIUM 4.4 mmol/L (3.5-5.0); URIC ACID 6.2 mg/dL (2.6-7.2)
[2022-02-15 13:16] LABS: THYROID STIMULATING HORMONE 2.5 uIU/mL (0.34-5.60)
[2022-02-15 13:52] LABS: ESTIMATED AVERAGE GLUCOSE 123 mg/dL (70-100); HEMOGLOBIN A1c% 5.9 % (4.27-6.07)
== END 2022-02-15 07:11 | disposition home or self-care (01) ==
LOC: LAB.N 07:10
PROVIDERS: ATTEND Internal Medicine
DX: I10 Essential (primary) hypertension (principal); R73.03 Prediabetes; Z12.5 Encounter for screening for malignant neoplasm of prostate; I48.91 Unspecified atrial fibrillation; M10.9 Gout, unspecified
CPT/HCPCS: 36415; 80048; 83036; 84443; 84550; G0103; 84153

== ENCOUNTER 2022-05-31 07:08 | Outpatient (CLI) | payer MEDICARE, OTHER ==
[2022-05-31 12:09] LABS: BASOPHILS # (AUTO) 0.1 10^3/uL (0.0-0.1); EOSINOPHILS # (AUTO) 0.3 10^3/uL (0.0-0.7); EOSINOPHILS % (AUTO) 3.8 %; HCT - HEMATOCRIT 55.3 % (42.0-52.0); HGB - HEMOGLOBIN 17.7 g/dL (14.0-18.0); LYMPHOCYTES # (AUTO) 1.4 10^3/uL (1.5-3.5); LYMPHOCYTES % (AUTO) 17.1 %; MEAN CORPUSCULAR HEMOGLOBIN 28.3 pg (27.0-31.0); MEAN CORPUSCULAR VOLUME 88.3 fL (80.0-94.0); MEAN PLATELET VOLUME 10.3 fL (7.4-11.4); MONOCYTES # (AUTO) 0.7 10^3/uL (0.0-1.0); NEUTROPHILS # (AUTO) 5.5 10^3/uL (1.5-6.6); NEUTROPHILS % (AUTO) 68.5 %; PLT - PLATELET COUNT 189 10^3/uL (130-450); RED BLOOD COUNT 6.26 10^6/uL (4.70-6.10); RED CELL DISTRIBUTION WIDTH 13.7 % (12.0-15.0)
[2022-05-31 12:21] LABS: ALBUMIN/GLOBULIN RATIO 1.3 (1.0-2.2); ALKALINE PHOSPHATASE 45 IU/L (42-121); ALT ALANINE AMINOTRANSFERASE 30 IU/L (10-60); AST ASPARTATE AMINOTRANSFERASE 21 IU/L (10-42); BUN - BLOOD UREA NITROGEN 22 mg/dL (6-20); CARBON DIOXIDE - CO2 28 mmol/L (21-32); CHLORIDE 107 mmol/L (101-111); CHOL/HDL RATIO 2.4 (<5.0); CHOLESTEROL 86 mg/dL; CREATININE 1.3 mg/dL (0.6-1.2); GFR - MDRD 54 (>89); GLUCOSE 107 mg/dL (70-100); HDL CHOLESTEROL 36 mg/dL; LDL CHOLESTEROL,CALCULATED 28 mg/dL; LDL/HDL RATIO 0.8 (<3.6); POTASSIUM 4.4 mmol/L (3.5-5.0); SODIUM 144 mmol/L (135-145); TOTAL PROTEIN 7.1 g/dL (6.7-8.2); TRIGLYCERIDES 112 mg/dL; URIC ACID 8.4 mg/dL (2.6-7.2); VLDL CHOLESTEROL 22 mg/dL
[2022-05-31 12:23] LABS: THYROID STIMULATING HORMONE 2.44 uIU/mL (0.34-5.60)
[2022-05-31 12:51] LABS: ESTIMATED AVERAGE GLUCOSE 123 mg/dL (70-100); HEMOGLOBIN A1c% 5.9 % (4.27-6.07)
== END 2022-05-31 07:09 | disposition home or self-care (01) ==
LOC: LAB.N 07:08
PROVIDERS: ATTEND Internal Medicine
DX: E78.5 Hyperlipidemia, unspecified (principal); R73.03 Prediabetes; R97.20 Elevated prostate specific antigen [PSA]; I48.21 Permanent atrial fibrillation; M10.9 Gout, unspecified; I10 Essential (primary) hypertension
CPT/HCPCS: 36415; 80053; 80061; 83036; 83721; 84153; 84443; 84550; 85025

== ENCOUNTER 2022-07-26 09:34 | Outpatient (CLI) | payer MEDICARE, OTHER ==
[2022-07-26 12:24] VITALS: BP 140/80
--- NOTE | 2022-07-26 12:24 | SLEEP CARE CONSULTATION ---
Information from patient questionnaire entered by Alvina Andino. I have reviewed and concur with the information entered by Alvina Andino. This document represents the service I personally performed and the decisions made by me, Jennifer Nails MD, [facility]. History of Present Illness Service Date and Time: 07/26/2022 0934 Previous diagnosis: Severe, Obstructive Sleep Apnea-Hypopnea Syndrome, Central Sleep Apnea-Hypopnea Syndrome AHI: 52.0 (in 2012) Reason for follow up: annual (LAST SEEN 07/2021) Equipment type: CPAP (RESMED) Equipment obtained from: [employer] Mask style: Nasal Prior sleep studies: Yes Year and Where: 2012 - [facility] Type of Sleep Study: Polysomnography (F/U TITRATION,) HPI additional information: Mr. Mary was diagnosed to have severe obstructive sleep apnea-hypopnea syndrome and returns today for annual follow up of CPAP therapy. The patient gets his supplies from [employer]. He wears a nasal mask. He continues to use the device nightly and all through the night. The compliance report shows that he uses the device 363 nights out of the past 365 nights, averaging 6.4 hours a night. He complains of no particular problem with the device such as soreness on the face, dry nose, epistaxis, nasal congestion or headache. He thinks that the pressure of 14 - 17 cmH2O is comfortable. On the CPAP therapy he notices improvement in his sleep quality, and that he wakes up feeling fresher in the morning and more awake/alert during the day. [place] Sleepiness Scale score is 4 (was 10). His notices no snore at all. The average residual AHI is 16.7 (was 10.6); and large leak, 7.4 L/minute. Most of the residual respiratory events are central apneas. His last manual CPAP/BiPAP titration study last year showed a residual AHI of only 3 on CPAP of 15 cmH2O. Sleep Study - Results Type of Sleep Study: Polysomnography (F/U TITRATION,) Prior sleep studies: Yes Year and Where: 2012 - [facility] CPAP Compliance Data - Data Reviewed with Patient Average duration of nightly device use: 6HRS 24MINS Compliance rate %: 98 (01/24/2022-07/22/2022) Current pressure setting (cmH2O): 14-17 Average residual AHI: 17.6 Subjective Initial [place] Sleepiness Scale score: 11 (in 2013) Current [place] Sleepiness Scale score: 4 (07/26/22) Allergies and Home Medications Drug allergies reviewed: Yes Home medication list reviewed: Yes Allergy and home medication list: Allergies No Known Drug Allergies Allergy (Verified 01/04/15 10:47) Review of Systems Review of systems same as previous: Yes Physical Exam Vital signs obtained and entered by: ALVINA Escalera MA Blood Pressure: 140/80 (LEFT ARM) Cuff size: regular Heart Rate: 45 O2 Saturation: 98 Height: 5 ft 11 in Weight: 271 lb 6.4 oz Body Mass Index: 37.8 BMI Classification: Obese Impression and Plan IMPRESSION: 1. Obstructive Sleep Apnea-Hypopnea Syndrome, severe (AHI was 52.0), with the patient continuing to do well on nasal CPAP therapy. He has excellent compliance and significant clinical benefits. The current pressure appears comfortable. The high residual AHI reported is probably inaccurate. No adjustment is necessary today. PLAN: 1. Leave autoCPAP at 14 - 17 cm H2O. 2. Try to lose weight. 3. Return for follow up in 4 months when he is eligible for a new machine. Follow up with Sleep Care in: other (4 months) Visit Type: In Office Time Spent with Patient (minutes): 15 Provider Statement: I spent 100% of the Face to Face Visit with the patient with greater than 50% spent counseling the patient and coordination of care.
== END 2022-07-26 09:35 | disposition home or self-care (01) ==
LOC: SC 09:34
PROVIDERS: ATTEND Internal Medicine Pulmonary Disease
DX: G47.33 Obstructive sleep apnea (adult) (pediatric) (principal); E66.9 Obesity, unspecified; Z68.37 Body mass index [BMI] 37.0-37.9, adult
CPT/HCPCS: 99212; G0463

== ENCOUNTER 2022-11-17 08:00 | Outpatient (CLI) | payer MEDICARE, OTHER | END 2022-11-17 23:59 | disposition home or self-care (01) | LOC: LAB.N 08:00 | PROVIDERS: ATTEND Internal Medicine Hematology & Oncology | DX: Z53.9 Procedure and treatment not carried out, unspecified reason (principal) | CPT/HCPCS: 36415; 82565; 85025; 85610; 85730 ==

== ENCOUNTER 2022-12-06 13:46 | Outpatient (CLI) | payer MEDICARE, OTHER ==
--- NOTE | 2022-12-06 11:11 | SLEEP CARE CONSULTATION ---
Information from patient questionnaire entered by Alvina Andino. I have reviewed and concur with the information entered by Alvina Andino. This document represents the service I personally performed and the decisions made by me, Jennifer Nails MD, [facility]. History of Present Illness Service Date and Time: 12/06/2022 0920 Previous diagnosis: Severe, Obstructive Sleep Apnea-Hypopnea Syndrome, Central Sleep Apnea-Hypopnea Syndrome AHI: 52.0 (in 2012) Reason for follow up: first compliance Equipment type: CPAP (RESMED) Equipment obtained from: [facility] Mask style: Nasal Prior sleep studies: Yes Year and Where: 2012 - [facility] Type of Sleep Study: Polysomnography (F/U TITRATION,) HPI additional information: Mr. Mary was diagnosed to have severe obstructive sleep apnea-hypopnea syndrome and was seen today via video telemedicine for annual follow up of CPAP therapy. The patient gets his supplies from [employer]. He wears a nasal mask. He continues to use the device nightly and all through the night. The compliance report shows that he uses the device 30 nights out of the past 30 nights, averaging 6.5 hours a night. He complains of no particular problem with the device such as soreness on the face, dry nose, epistaxis, nasal congestion or headache. He thinks that the pressure of 14 - 17 cmH2O is comfortable. On the CPAP therapy he notices improvement in his sleep quality, and that he wakes up feeling fresher in the morning and more awake/alert during the day. [place] Sleepiness Scale score is 5 (was 10). His notices no snore at all. The average residual AHI is 14.8 (was 16.7); and large leak, 7.4 L/minute. Most of the residual respiratory events are central apneas. His last manual CPAP/BiPAP titration study last year showed a residual AHI of only 3 on CPAP of 15 cmH2O. Sleep Study - Results Type of Sleep Study: Polysomnography (F/U TITRATION,) Prior sleep studies: Yes Year and Where: 2012 - [facility] Sleep CPAP Compliance Data - Data Reviewed with Patient Average duration of nightly device use: 6HRS 32MIN Compliance rate %: 100 (11/03/2022-12/02/2022) Current pressure setting (cmH2O): 14-17 Average residual AHI: 14.8 Subjective Initial [place] Sleepiness Scale score: 11 (in 2013) Current [place] Sleepiness Scale score: 5 (12/06/22) Allergies and Home Medications Drug allergies reviewed: Yes Home medication list reviewed: Yes Allergy and home medication list: Allergies No Known Drug Allergies Allergy (Verified 12/03/22 08:36) Review of Systems Review of systems same as previous: Yes Physical Exam Vital signs obtained and entered by: ALVINA Escalera MA Blood Pressure: 146/76 (LEFT ARM) Cuff size: regular Height: 5 ft 11 in (PER PT) Weight: 245 lb (PER PT) Body Mass Index: 34.2 BMI Classification: Obese Impression and Plan IMPRESSION: 1. Obstructive Sleep Apnea-Hypopnea Syndrome, severe (AHI was 52.0), with the patient continuing to do well on nasal CPAP therapy. He has excellent compliance and significant clinical benefits. The current pressure appears comfortable. The high residual AHI reported is probably inaccurate. No adjustment is necessary today. Because the CPAP is now older than the useful life of 5 years, I will order the patient a new one and make it an autoCPAP set between 14 and 17 cmH2O. PLAN: 1. Leave autoCPAP at 14 - 17 cm H2O. 2. Prescription made for an autoCPAP, heated humidifier, and related supplies. 3. Return for a follow up in a year or earlier if there is any problem. Prescriptions: Auto CPAP ([employer]) Follow up with Sleep Care in: 1 year Visit Type: Telehealth Phone Patient Location: Home Location of Provider: Office Patient agrees and consents to this telehealth visit type: Yes Patient agrees to have their insurance billed: Yes Time Spent with Patient (minutes): 15 Provider Statement: I spent 100% of the Telehealth Phone Call with the patient with greater than 50% spent counseling the patient and coordination of care.
[2022-12-06 11:18] VITALS: BP 146/76
== END 2022-12-06 13:47 | disposition home or self-care (01) ==
LOC: SC 13:46
PROVIDERS: ATTEND Internal Medicine Pulmonary Disease
DX: G47.33 Obstructive sleep apnea (adult) (pediatric) (principal); E66.9 Obesity, unspecified; Z68.34 Body mass index [BMI] 34.0-34.9, adult

== ENCOUNTER 2023-04-29 07:04 | Outpatient (CLI) | payer MEDICARE, OTHER ==
[2023-04-29 12:29] LABS: CALCIUM 9.7 mg/dL (8.5-10.3); CREATININE 1.4 mg/dL (0.6-1.3); POTASSIUM 3.4 mmol/L (3.5-4.5); URIC ACID 10.2 mg/dL (4.4-7.6)
[2023-04-29 17:43] LABS: ESTIMATED AVERAGE GLUCOSE 120 mg/dL (70-100); HEMOGLOBIN A1c% 5.8 % (4.27-6.07)
== END 2023-04-29 07:05 | disposition home or self-care (01) ==
LOC: LAB.N 07:04
PROVIDERS: ATTEND Internal Medicine
DX: I10 Essential (primary) hypertension (principal); R73.03 Prediabetes; M10.9 Gout, unspecified
CPT/HCPCS: 36415; 80048; 83036; 84550

== ENCOUNTER 2023-06-30 07:03 | Outpatient (CLI) | payer MEDICARE, OTHER ==
[2023-06-30 12:58] LABS: ALBUMIN/GLOBULIN RATIO 1.5 (1.0-2.2); ALKALINE PHOSPHATASE 61 IU/L (42-121); ALT ALANINE AMINOTRANSFERASE 20 IU/L (10-60); AST ASPARTATE AMINOTRANSFERASE 20 IU/L (10-42); BILIRUBIN,TOTAL 0.5 mg/dL (0.2-1.0); BUN - BLOOD UREA NITROGEN 22 mg/dL (6-20); CARBON DIOXIDE - CO2 33 mmol/L (21-32); CHLORIDE 102 mmol/L (101-111); CHOL/HDL RATIO 2.2 (<5.0); CHOLESTEROL 71 mg/dL; CREATININE 1.1 mg/dL (0.6-1.3); GFR - MDRD 65 (>89); GLUCOSE 116 mg/dL (74-104); HDL CHOLESTEROL 32 mg/dL; LDL CHOLESTEROL,CALCULATED 9 mg/dL; LDL/HDL RATIO 0.3 (<3.6); POTASSIUM 3.2 mmol/L (3.5-4.5); SODIUM 141 mmol/L (135-145); TOTAL PROTEIN 6.6 g/dL (6.4-8.9); TRIGLYCERIDES 149 mg/dL (48-352); URIC ACID 6.4 mg/dL (4.4-7.6); VLDL CHOLESTEROL 30 mg/dL
== END 2023-06-30 07:04 | disposition home or self-care (01) ==
LOC: LAB.N 07:03
PROVIDERS: ATTEND Internal Medicine
DX: E78.5 Hyperlipidemia, unspecified (principal); R73.03 Prediabetes; N40.1 Benign prostatic hyperplasia with lower urinary tract symptoms; I48.21 Permanent atrial fibrillation; M10.9 Gout, unspecified
CPT/HCPCS: 36415; 80053; 80061; 83721; 84153; 84443; 84550

== ENCOUNTER 2023-08-02 15:48 | Outpatient (CLI) | payer MEDICARE, OTHER ==
[2023-08-02 17:36] LABS: BASOPHILS # (AUTO) 0.1 10^3/uL (0.0-0.1); BASOPHILS % (AUTO) 0.9 %; EOSINOPHILS # (AUTO) 0.3 10^3/uL (0.0-0.7); EOSINOPHILS % (AUTO) 2.6 %; HCT - HEMATOCRIT 51.8 % (42.0-52.0); HGB - HEMOGLOBIN 17.4 g/dL (14.0-18.0); LYMPHOCYTES # (AUTO) 1.4 10^3/uL (1.5-3.5); LYMPHOCYTES % (AUTO) 15.1 %; MEAN CORPUSCULAR HEMOGLOBIN 28.5 pg (27.0-31.0); MEAN CORPUSCULAR HGB CONC 33.6 g/dL (32.0-36.0); MEAN CORPUSCULAR VOLUME 84.8 fL (80.0-94.0); MEAN PLATELET VOLUME 10.5 fL (7.4-11.4); MONOCYTES # (AUTO) 0.8 10^3/uL (0.0-1.0); MONOCYTES % (AUTO) 8.6 %; NEUTROPHILS # (AUTO) 6.9 10^3/uL (1.5-6.6); NEUTROPHILS % (AUTO) 72.3 %; PLT - PLATELET COUNT 219 10^3/uL (130-450); RED BLOOD COUNT 6.11 10^6/uL (4.70-6.10); RED CELL DISTRIBUTION WIDTH 14.6 % (12.0-15.0); WHITE BLOOD COUNT 9.6 x10^3/uL (4.8-10.8)
[2023-08-02 17:49] LABS: ALBUMIN/GLOBULIN RATIO 1.3 (1.0-2.2); ALKALINE PHOSPHATASE 56 IU/L (42-121); ALT ALANINE AMINOTRANSFERASE 20 IU/L (10-60); AST ASPARTATE AMINOTRANSFERASE 18 IU/L (10-42); BILIRUBIN,TOTAL 0.7 mg/dL (0.2-1.0); BUN - BLOOD UREA NITROGEN 20 mg/dL (6-20); CALCIUM 10.1 mg/dL (8.5-10.3); CARBON DIOXIDE - CO2 33 mmol/L (21-32); CHLORIDE 103 mmol/L (101-111); CHOL/HDL RATIO 2.3 (<5.0); CHOLESTEROL 71 mg/dL; CREATININE 1.2 mg/dL (0.6-1.3); GFR - MDRD 59 (>89); GLUCOSE 99 mg/dL (74-104); HDL CHOLESTEROL 31 mg/dL; LDL CHOLESTEROL,CALCULATED 0 mg/dL; POTASSIUM 3.5 mmol/L (3.5-4.5); SODIUM 142 mmol/L (135-145); TRIGLYCERIDES 200 mg/dL (48-352); VLDL CHOLESTEROL 40 mg/dL
== END 2023-08-02 15:49 | disposition home or self-care (01) ==
LOC: LAB.N 15:48
PROVIDERS: ATTEND Internal Medicine Cardiovascular Disease
DX: I48.21 Permanent atrial fibrillation (principal); E78.00 Pure hypercholesterolemia, unspecified; I25.810 Atherosclerosis of coronary artery bypass graft(s) without angina pectoris
CPT/HCPCS: 36415; 80053; 80061; 83721; 85025

== ENCOUNTER 2023-08-24 07:07 | Outpatient (CLI) | payer MEDICARE, OTHER ==
[2023-08-24 12:15] LABS: BUN - BLOOD UREA NITROGEN 25 mg/dL (6-20); CALCIUM 9.9 mg/dL (8.5-10.3); CARBON DIOXIDE - CO2 29 mmol/L (21-32); CHLORIDE 108 mmol/L (101-111); CHOL/HDL RATIO 1.9 (<5.0); CHOLESTEROL 72 mg/dL; CREATININE 1.3 mg/dL (0.6-1.3); GFR - MDRD 54 (>89); GLUCOSE 105 mg/dL (74-104); HDL CHOLESTEROL 38 mg/dL; LDL CHOLESTEROL,CALCULATED 16 mg/dL; LDL/HDL RATIO 0.4 (<3.6); POTASSIUM 4.2 mmol/L (3.5-4.5); SODIUM 141 mmol/L (135-145); TRIGLYCERIDES 89 mg/dL (48-352); VLDL CHOLESTEROL 18 mg/dL
== END 2023-08-24 07:08 | disposition home or self-care (01) ==
LOC: LAB.N 07:07
PROVIDERS: ATTEND Internal Medicine Cardiovascular Disease
DX: I25.810 Atherosclerosis of coronary artery bypass graft(s) without angina pectoris (principal); E78.00 Pure hypercholesterolemia, unspecified
CPT/HCPCS: 36415; 80048; 80061; 83721

== ENCOUNTER 2023-12-05 07:16 | Outpatient (CLI) | payer MEDICARE, OTHER ==
[2023-12-05 13:12] LABS: CHOL/HDL RATIO 3.5 (<5.0); CHOLESTEROL 115 mg/dL; HDL CHOLESTEROL 33 mg/dL; LDL CHOLESTEROL,CALCULATED 56 mg/dL; LDL/HDL RATIO 1.7 (<3.6); TRIGLYCERIDES 131 mg/dL; VLDL CHOLESTEROL 26 mg/dL
== END 2023-12-05 07:17 | disposition home or self-care (01) ==
LOC: LAB 07:16
PROVIDERS: ATTEND Internal Medicine Cardiovascular Disease
DX: I25.810 Atherosclerosis of coronary artery bypass graft(s) without angina pectoris (principal); E78.00 Pure hypercholesterolemia, unspecified
CPT/HCPCS: 36415; 80061; 83721